=== PATIENT | female | born 1980 | race Caucasian/White ===

== ENCOUNTER 2018-02-28 11:37 | Emergency (ER) | payer OTHER, BC ==
[2018-02-28] MEDS: IBUPROFEN 600 MG TAB PO (14:26)
[2018-02-28] MEDS: LIDOCAINE/MYLANTA 40 ML BTL PO (14:26)
== END 2018-02-28 15:39 | disposition home or self-care (01) ==
LOC: FTE 11:37
DX: J02.9 Acute pharyngitis, unspecified (principal); F17.210 Nicotine dependence, cigarettes, uncomplicated
CPT/HCPCS: 87880; 99283